=== PATIENT | female | born 1940 | race Hispanic/Latino ===

== ENCOUNTER → 2017-02-01 | Outpatient (CLI) | payer MEDICARE ==
--- NOTE | 2017-02-01 14:55 | MAM ---
History: Well woman exam. Date of exam: 02/01/2017 Services provided: Bilateral full field digital screening mammography. CAD, the images were reviewed with R2 computer aided detection. FINDINGS: Glandular tissue is scattered glandular contour. Comparison with 2013 exam. No dominant mass, architectural distortion or clustered microcalcification. IMPRESSION: Benign exam Recommendation: Routine annual mammography BIRAD CATEGORY: 2 BENIGN FINDINGS NEGATIVE Electronically signed by: Christal Weiss MD 02/01/2017 2:54 PM CDT Workstation: [id number]
== END | disposition home or self-care (01) ==
LOC: MAMMO 09:26
PROVIDERS: ATTEND Family Medicine
DX: Z12.31 Encounter for screening mammogram for malignant neoplasm of breast (principal)

== ENCOUNTER → 2018-02-28 | Outpatient (CLI) | payer MEDICARE ==
--- NOTE | 2018-03-04 09:46 | MAM ---
EXAM DESCRIPTION: 3D Screening BILATERAL : Digital Mammography. CLINICAL HISTORY: 77 years Female SCREENING . No complaints. Sister with breast cancer. Childbirth. Postmenopausal. COMPARISON: 2-D digital screening bilateral study 02/01/2017. Report from prior examination also reviewed. TECHNIQUE: Bilateral CC and MLO projection full-field images, 3-D tomosynthesis digital mammographic technique. CAD not utilized. FINDINGS: The breast parenchymal density pattern is: Scattered areas of fibroglandular density. No skin thickening or nipple retraction. Left breast axillary lymph nodes. Bilateral solitary coarse calcifications. No new focal, stellate mass or density, focal asymmetry , and no suspicious microcalcifications bilaterally. Stable mammograms compared to prior study, taking into account differences in mammographic technique. IMPRESSION: BI-RADS CATEGORY: 2 - BENIGN FINDINGS. FOLLOW UP: Routine digital bilateral screening, one year interval from February 2018. Written communication explaining the IMPRESSION and follow-up, will be mailed to the patient and referring health care provider. According to the [employer], yearly mammograms are recommended starting at age 40 and continuing as long as a woman is in good health. Any breast change noted on a breast self-exam should be reported promptly to the patient's healthcare provider. Breast MRI is recommended for women with an approximately 20-25% or greater lifetime risk of breast cancer, including women with a strong family history of breast or ovarian cancer and women who have been treated for Hodgkin's disease. A negative mammographic report should not delay tissue diagnosis in patients with significant clinical history or physical findings. Extremely dense breast tissue limits the sensitivity of digital mammography. Electronically signed by: Blade Gregorio MD 03/04/2018 9:45 AM CDT
== END ==
LOC: MAMMO 13:00
PROVIDERS: ATTEND Family Medicine
DX: Z12.31 Encounter for screening mammogram for malignant neoplasm of breast (principal)

== ENCOUNTER → 2020-08-13 | Outpatient (CLI) | payer MEDICARE | LOC: GMALP 10:48 | PROVIDERS: ATTEND Family Medicine | DX: D51.9 Vitamin B12 deficiency anemia, unspecified (principal); M81.0 Age-related osteoporosis without current pathological fracture; Z13.220 Encounter for screening for lipoid disorders ==